=== PATIENT | male | born 1970 | race Caucasian/White ===

== ENCOUNTER 2022-06-23 13:04 | Emergency (ER) | payer BC, SELFPAY ==
[2022-06-23 13:06] VITALS: BP 130/99; PULSE 87; RESP 14; TEMP 36.1; O2SAT 99; BMI 37.0
--- NOTE | 2022-06-23 13:09 | NURSING ---
NO OLD EKGS
--- NOTE | 2022-06-23 13:16 | NURSING ---
NO OLD EKGS
--- NOTE | 2022-06-23 13:50 | NURSING ---
no old ekgs
[2022-06-23 14:02] LABS: Absolute Neutrophil Count 5.4 X10^3/uL (2.0-7.7); Basophil# 0.08 X10^3/uL; Basophil% 0.9 % (0-1); Eosinophil# 0.29 X10^3/uL; Eosinophils% 3.4 % (0-5); Hematocrit 51.2 % (40-54); Hemoglobin 16.4 g/dL (13.0-16.5); Lymphocyte % 22.1 % (19-41); Mean Corpuscular Hgb 29.7 pg (27.0-32.0); Mean Corpuscular Volume 92.6 fL (80-94); Mean Platelet Vol. 8.7 fl (6.2-12.0); Monocyte# 0.91 X10^3/uL; Monocyte% 10.6 % (0-10); NRBC Flagged by Analyzer 0 % (0-5); Neutrophil # 5.38 X10^3/uL (2.7-7.7); Neutrophil % 62.4 % (47-70); Platelet Count 311 K/mm3 (150-450); RBC Distribution Width CV 13.9 % (11.6-14.6); RBC Distribution Width SD 47.5 fl (35.1-43.9); Red Blood Count 5.53 M/mm3 (4.6-6.2); White Blood Count 8.6 K/mm3 (4.4-11.0)
--- NOTE | 2022-06-23 14:10 | RAD_ITS ---
STUDY: X-RAY CHEST REASON FOR EXAM: Male, 51 years old. Chest pain TECHNIQUE: Single AP portable view of the chest. COMPARISON: None. FINDINGS: EKG electrodes are seen. The lungs are clear and expanded. There is no demonstrated pleural abnormality. Normal size heart. Normal mediastinum and shazia. Normal visualized pulmonary arteries. Normal visualized aortic arch and descending thoracic aorta. Normal visualized thoracic spine. Normal visualized ribs, clavicles, and shoulders. There is no demonstrated abnormality of the visualized soft tissue structures of the upper abdomen. RAD/Chest 1 View (Portable) IMPRESSION: Normal x-ray examination of the chest. Electronically Signed: Bulmaro Kothari MD at 14:32 EDT ,
[2022-06-23 14:19] LABS: Anion Gap 4 (5-15); BUN 12 mg/dL (7-18); BUN/Creat Ratio 11.4 RATIO (10-20); Calcium,Total 9.8 mg/dL (8.5-10.1); Chloride 110 mmol/L (98-107); Creatinine, Serum 1.05 mg/dL (0.70-1.30); EST Glomerular Filtration Rate 79 mL/min (>60); Est Glom Filt Rate - Afr Amer 96 mL/min (>60); Estimated Creatinine Clearance 84.17 ml/min; Glucose 95 mg/dL (74-106); Potassium 4.7 mmol/L (3.5-5.1); Sodium Level 140 mmol/L (136-145); Troponin-I HS 4 pg/mL (3.0-78.0)
--- NOTE | 2022-06-23 14:46 | ED.VIS.CHEST ---
HPI History of Present Illness Chief Complaint: Palpitations Informant: patient Onset/Context/Timing Onset: Today Activity at onset: sudden and sleep Timing: Lasts (3-4 hours) Quality: Positive for Pressure Location: Substernal Worsened By: Nothing Relieved By: - (Activity) Associated Symptoms: Positive for Acid Reflux and Palpitations; Negative for Nausea, Vomiting, Diaphoresis, Dyspnea, Cough, Fever or Lightheadedness Narrative Narrative: Patient presents with palpitations that began earlier this morning approximately 0300. Patient states he woke up and felt like his heart was racing. Patient states he also had pressure over the substernal area. Patient states nothing makes it worse. Patient states he got better when he became more active this morning. Patient states his heart rate was around 110 at home when he woke up. Patient admits to history of acid reflux. Patient denies any nausea or vomiting. Patient denies any shortness of breath or cough. Patient denies any diaphoresis. CVD Risk Factors: Negative for Hypertension, Diabetes, Hypercholesterolemia, Family History 1' </=55 or Smoking PE Risk Factors: Negative for Recent Travel/Surgery, Recent Immobilization, Prior DVT or PE, Cancer or OCP + Smoking + >/=35 PFSH PFSH Medical History (Updated 06/23/22 @ 16:[address] Chapo Fernando DO) Hypertension Kidney stones Ulcerative colitis Home Medications lisinopril 10 mg tablet PO 05/10/19 [History Last Taken Unknown] oseltamivir 75 mg capsule 75 mg PO BID #10 caps 05/10/19 [Rx Last Taken Unknown] Allergy/AdvReac Type Severity Reaction Status Date / Time shellfish derived Allergy Mild UNKNOWN Verified 06/23/22 13:05 Surgical History (Updated 06/23/22 @ 14:[address] Chapo Fernando DO) History of lithotripsy Hx of left mastectomy Hx of tonsillectomy Social History Smoking Status: Never smoker alcohol intake: never ROS ROS ED Constitutional Constitutional ED: Denies chills or fever(s) Eyes Eyes: Denies blurry vision or change in vision ENT ENT ED: Denies rhinorrhea or sore throat Cardiovascular Cardiovascular: Reports as per HPI, chest pain, palpitations and racing heartbeat Respiratory/Chest Respiratory/Chest: Denies cough or dyspnea Gastrointestinal Gastrointestinal: Denies nausea or vomiting Genitourinary Genitourinary ED: Denies dysuria or hematuria Musculoskeletal Musculoskeletal: Denies back pain or neck pain Integumentary Denies abscess or rash Neurologic Neurologic: Denies headache(s) or weakness Allergic/Immunologic Allergic/Immunologic ED: Denies mouth swelling or urticaria EXAM Physical Exam Const Vital Signs: 06/23/22 13:06 06/23/22 13:55 06/23/22 16:42 Temperature 97 F L Temperature Source Temporal Pulse Rate 87 81 Respiratory Rate 14 16 Blood Pressure 130/99 H 125/82 H Blood Pressure Mean 109 Pulse Ox 99 99 Oxygen Delivery Method Room Air Room Air Positive well nourished and well developed General Appearance ED: well developed and NAD HEENT Reports moist mucous membranes Neck supple and no JVD Resp normal respiratory effort and clear to auscultation bilaterally Cardio regular rate, regular rhythm and no murmurs GI normal to inspection, nondistended, normoactive bowel sounds and non-tender Palpation: soft Extremity normal to inspection General Extremety ED: Negative for edema or tenderness General Extremity: Negative for edema Neuro oriented x3, CN's II-XII intact bilaterally and no sensory deficits noted Sensorium / Orientation: alert Motor Exam: strength 5/5 throughout Psych mental status grossly normal Skin no rashes or lesions noted Heart Score History: Slightly/Non-Suspicious ECG: Normal Age: >45 - <65 years Risk Factors: No Risk Factors Troponin: </= Normal Limit Score: 1 MDM MDM MDM Narrative Medical decision making narrative: Differential diagnosis includes cardiac dysrhythmia, cardiac ischemia, pneumonia, pneumothorax, pericarditis, and anxiety. EKG will be obtained to assess for cardiac dysrhythmia and cardiac ischemia. Chest x-ray will be obtained to assess for pneumonia and pneumothorax. CBC will be obtained to assess for leukocytosis and anemia. Basic metabolic profile will be obtained to assess for electrolyte abnormality and renal function. High-sensitivity troponin will be obtained to assess for cardiac ischemia. Lab Data Attestation: I reviewed the patient's lab results. Lab results narrative: CBC was reviewed and was within normal limits. Basic metabolic profile was reviewed and was within normal limits. High-sensitivity troponin was reviewed and was normal at 4. 2-hour repeat high-sensitivity troponin was reviewed and was normal at 4. Labs: Laboratory Results - last 24 hr 06/23/22 06/23/2206/23/23 13:45 13:45 15:40 WBC 8.6 RBC 5.53 Hgb 16.4 Hct 51.2 MCV 92.6 MCH 29.7 MCHC 32.0 RDW Std Deviation 47.5 H RDW Coeff of [place] 13.9 Plt Count 311 MPV 8.7 Immature Gran % (Auto) 0.600 Neut % (Auto) 62.4 Lymph % (Auto) 22.1 [place] % (Auto) 10.6 H Eos % (Auto) 3.4 Baso % (Auto) 0.9 Absolute Neuts (auto) 5.4 Absolute Lymphs (auto) 1.90 Nucleated RBC % 0 Sodium 140 Potassium 4.7 Chloride 110 H Carbon Dioxide 26.0 Anion Gap 4 L BUN 12 Creatinine 1.05 Estim Creat Clear Calc 84.17 Est GFR (MDRD) Af Amer 96 Est GFR (MDRD) Non-Af 79 BUN/Creatinine Ratio 11.4 Glucose 95 Calcium 9.8 Troponin I High Sens 4 4 Radiography Diagnostic Testing: Clinical Impression(s) from Imaging Studies Chest X-Ray 06/23/22 14:10 IMPRESSION: Normal x-ray examination of the chest. Electronically Signed: Bulmaro Kothari MD at 14:32 EDT , Portable 1 view chest x-ray was obtained. On my independent interpretation, lung garcia are clear. There is normal cardiac silhouette. Bony thorax is normal. There is no acute process noted. Radiologist also interpreted the x-ray and agrees. EKG Initial EKG: Attestation: I personally reviewed and interpreted this EKG as follows: Interpretation: Sinus Rhythm (74) and No Acute Injury Pattern Comments: EKG was obtained. On my independent interpretation, it showed a normal sinus rhythm with a rate of 74. ND interval was slightly shortened at 108 ms. QRS interval and QTc intervals were normal. [place] was borderline left axis at -21. There are no acute ST or T wave changes. Prior EKG tracings: not available for review Prior: No Prior Treatment and Re-Evaluation :: Patient was advised of his findings. Patient is feeling better on reevaluation. Patient has a HEART score of 1. Patient was advised that this is low risk for acute cardiac event. Patient was instructed to follow-up with his primary care physician in 5 to 7 days for further evaluation. Patient understands and is agreeable with the plan. All questions were answered. Discharge Plan Triage Chief Complaint: Palpitations ED Provider: Chapo Fernando Dx/Rx/DC Orders Clinical Impression: Heart palpitations, Chest pain Instructions: ED Chest Pain, Uncertain Cause, ED Palpitations Prescriptions: No Action lisinopril 10 mg tablet PO oseltamivir 75 mg capsule 75 mg PO BID Qty: 10 0RF Primary Care Provider: Dieudonne Villanueva Referrals: Dieudonne Villanueva MD [Primary Care Provider] - 3-5 Days Disposition Disposition: Home, Self Care Discharge Date/Time: 06/23/22 16:43
[2022-06-23 16:13] LABS: Troponin-I HS 4 pg/mL (3.0-78.0)
[2022-06-23 16:42] VITALS: BP 125/82; PULSE 81; RESP 16; O2SAT 99
== END 2022-06-23 16:43 | disposition home or self-care (01) ==
PROVIDERS: Emergency Provider Emergency Medicine; PCP Family Medicine; Visit Provider Emergency Medicine
DX: R07.9 Chest pain, unspecified (principal); I10 Essential (primary) hypertension; R00.2 Palpitations; K21.9 Gastro-esophageal reflux disease without esophagitis
CPT/HCPCS: 71045; 80048; 84484; 85025; 93005; 99284; A4216